=== PATIENT | female | born 1955 | race Caucasian/White ===

== ENCOUNTER 2017-04-16 15:22 | Inpatient (IN) | payer OTHER ==
[~2017-04-16] VITALS: Ht 160 cm; Wt 41.0 kg
[2017-04-16 16:47] VITALS: BP 149/77; PULSE 92; RESP 18; O2SAT 95
[2017-04-16] MEDS ORDERED: MULT400C3 PO (17:00)
[2017-04-16] MEDS ORDERED: NAPR375T2 PO (17:00)
[2017-04-16] MEDS ORDERED: Polyethylene Glycol (PEG) 17 Gm Powder PO PRN (17:35)
[2017-04-16] MEDS ORDERED: Alum-Mag Hydrox-Simeth 30 mL Suspension PO PRN (17:35)
[2017-04-16] MEDS ORDERED: Ondansetron 2 mg/mL 2 mL Inj IVPUSH PRN (17:35)
[2017-04-16] MEDS: 0.9% Sodium Chloride 1,000 ML IV SCH (18:24)
[2017-04-16] MEDS: HYDROmorphone 0.5 mg/0.5 mL iSecure Syringe IVPUSH PRN ×2 (18:25→22:48)
[2017-04-16 19:40] VITALS: BP 160/81; PULSE 90; RESP 16; O2SAT 97
--- NOTE | 2017-04-16 21:25 | PCM.HPMED ---
Subjective Date of Service Apr 16, 2017 Primary Provider: Admitting Physician: Mag Arias MD Primary Care Physician: Celeste Attending Physician: Mag Arias MD Chief Complaint: Cough, SOB, and rib pain History of Present Illness: 62-year-old female with history of [id number] smoking and coarctation s/p aortic artery replacement presented to [facility] due to 7 days of chest and rib pain and shortness of breath. The patient denied fever, chills, nausea, vomiting, substernal chest pain, radiating chest pain, diaphoresis, dizziness, weight loss, or abdominal pain. The patient underwent evaluation at [facility] chest x-rays demonstrating large right pleural effusion, and a CT angiography of the chest which demonstrated what appears to be a homogenous pleural effusion. At [facility] a thoracentesis was achieved but only 30 mL were obtained, reportedly demonstrating an empyema or loculated pleural effusion. Etiology for the effusion has not been diagnosed and current report of the CT is not in [facility]. Plans were made as late as 04/15/[address] a chest tube for drainage. However this was never accomplished and there is no recurrent port as to why a chest tube was not attempted. The patient was instead transferred to [facility] where the above history was reviewed and review of systems was obtained. The reason for the transfer was initially reported for VATS. Dr. Arias of surgery is aware of the patient and asked that pulmonology also be involved. The patient today is doing quite well with only right-sided rib and chest pain that is amenable to Dilaudid 0.5 mg. Blood work from today prior to the patient leaving [facility] is as follows: Sodium 131, potassium 3.4, chloride 96, bicarbonate 25, calcium 8.3, BUN 8, creatinine 0.7, GFR greater than 60, glucose 76. WBC 12.2, H/H 11.1/32.6, platelets 298; differential 83% polys Iron 12, TIBC 150, percent saturation 8 Thoracentesis details obtained by phone call to [facility]: protein 3853.5, LDH 1618, color: clear-yellow, WBC 2380, RBC 92223, seg neut 56, clear cells 44 Review of Systems: Complete review of systems performed; pertinent positives and negatives per history of present illness, all other systems reviewed and are negative Allergies Coded Allergies: Sulfa (Sulfonamide Antibiotics) (Verified Allergy, Severe, rash, 04/16/17) latex (Verified Allergy, Intermediate, rash, 04/16/17) Home Medications Ladies Multivitamin 50+ Naproxen PRN PMH Reported coarctation of the aorta Nicotine dependence Unremarkable nuclear medicine stress test 1 year ago Surgical History Aortic-bifemoral artery replacement at [facility] 2014 Family History Mother - CHF, COPD Father - Cardiac disease, COPD, EtOH abuse Social History Hx Alcohol Use: Yes (rare) Hx Substance Use: No Smoking Status: Current Every Day Smoker (6 cigarettes/day) Living Arrangement: with Family Exam Vital Signs Vital Sign - Last Date Time Temp Pulse Resp B/P Pulse Ox O2 Delivery O2 Flow Rate FiO2 04/16/17 16:47 36.5 92 18 149/77 95 Room Air Exam General: Pleasant appearing female in no acute distress; somewhat cachectic appearing HEENT: PERRLA, EOMI, nonicteric, membranes moist Lymph: No lymphadenopathy Cardio: Regular rate and rhythm no murmurs rubs or gallops Respiratory: CTA bilaterally, no wheezes, no crackles; decreased breath sounds especially in the right lower lobe; increase consolidation on on percussion in right lower lobe Abdomen: Soft, positive bowel sounds, nontender, nondistended Extremities: No edema, sensation intact, pulses intact Psych: Appropriate mood and affect Neuro: CN II through XII grossly intact, sensation intact throughout Skin: No rash Lab and Diagnostics X-Rays, CTs and MRIs CXR 04/11/17 1. Opacification involving much of the right lower lobe. This may be atelectasis plus or minus pleural effusion. An underlying infection is not excluded. Atelectasis may be secondary to mucus plugging from bronchitis or central obstructing mass lesion. Further evaluation with contrast-enhanced chest CT is recommended. 2. Questionable prominence of the superior mediastinal structures suggestive of adenopathy, also further evaluate by cross-sectional imaging. 3. Mild hyperinflation consistent with mild emphysema. 4. Discussed with Parisa Beltre in the urgent care clinic. Dictated by: Debo Wilson MD on 04/11/2017 at 16:05 9 Assessment & Plan 62-year-old female with limited past medical history presents to emergency department at [facility] due to chest pain and was found to have recurrent right- sided pleural effusion concerning for empyema with unknown etiology. Recurrent pleural effusion with leukocytosis; present on admission; ongoing -Patient transferred from [facility] due to recurrent pleural effusion on the right; desired VATS Previously drained 400ml, re-accumulated and loculated on thoracentesis -Patient is a chronic 46-yusp-dguz smoker, so malignancy is a concern; concern for parapneumonic effusion due to ongoing leukocytosis -Unknown etiology at this point although effusion had a glucose of 2 which may be concerning for bacterial empyema -Pleural fluid: GS and culture was negative; AFB negative -Called [facility] and no cytology report available; discharge summary stated that there was a cytology ordered but unable to find results -Bcx negative at [facility] -Previously on Zosyn; will continue -MRSA screen -Discussed the case with pulmonology who will assess her tomorrow -Discussed with Dr. Arias this evening who requests the hospitalist and pulmonology teams assess for whether VATS is necessary -Repeat bcx ordered -Repeat CT -Recommend repeat diagnostic thoracentesis with cytology for malignant cells ordered that was not ordered at [facility] Persistent mild Hyponatremia; present on admission; ongoing -Previously treated with fluid restriction, thinking that it was 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 to SIADH -1 L fluid restriction daily -Serum and urine osmolalities ordered -Urine sodium ordered Iron deficiency anemia; present on admission; ongoing -As reported in HPI, patient severely iron deficient with saturation of 8% -Daily iron replacement -Consider screening for celiacs Nicotine dependence; present on admission; ongoing -Nicotine patch -Smoking cessation discussed Disposition: Patient is being admitted to inpatient status with expected length of stay greater than two midnights due to to severity of presentation, duration of treatment, and risks of adverse events disposition DNR/DNI Pain Evaluation: Adequate Pain Control VTE Prophylaxis Indicated: Contraindicated (concern for malignant effusion) Resuscitation Status: DNR/DNI:Do Not Resuscitate/Intubate Time spent 40 minutes Attending Statement The patient was seen and examined together with on 04/16/2017and I agree with the history, exam findings, and plan as outlined in the note above. I did participate in all aspects of the services provided today, including documentation and the plan of care. This patient presents with a loculated pleural effusion. She will be seen by pulmonary. Patient is for chest tube decompression versus VATS. Kali Bruce DO Apr 16, 2017 17:40 Avery Sanchez MD Apr 18, 2017 07:41
--- NOTE | 2017-04-16 22:07 | DRSVH ---
PROCEDURE: CT CHEST WITHOUT CONTRAST ([id number]) INDICATIONS: pleural effusion TECHNIQUE: Noncontrast 5 mm thick sections acquired from the pulmonary apices to the posterior costophrenic angl es. 7 mm thick coronal and sagittal MIP reformats were then acquired. For radiation dose reduction, the following was used: automated exposure control, adjustment of mA and/or kV according to patient size. COMPARISON: None. FINDINGS: Image quality: Excellent. Lungs and pleura: There is moderate centrilobular emphysema with an apical predominance. Bullous emph ysema is also present at the apices. A 4 x 9 mm spiculated mass or scar is present at the left apex ( series 3, image 12). There is a moderate-sized low density pleural effusion, slightly decreased when compared with the study dated 04/12/17. This has a loculated appearance. As before, there is consolida tion or compressive atelectasis at the right lung base. New atelectasis or consolidation is present i n the dependent left lung when compared with the prior study. No left pleural effusion. No pneumothor ax. A calcified granuloma is redemonstrated in the right lower lobe. Mediastinum: Heart size is normal. No pericardial effusion. No mediastinal adenopathy by size crit eria. Thoracic aorta and central pulmonary arteries are normal in size. Scattered atheromatous calc ifications are present within the aortic arch. Esophagus is normal in caliber. No hiatal hernia. Bones and chest wall: No suspicious bony lesions. No vertebral body compression fractures. No axil michael or supraclavicular adenopathy by size criteria. Thyroid gland is unremarkable. Abdomen: Visualized upper abdominal solid organs and bowel loops appear normal in the absence of con trast. IMPRESSION: 1. Pleural effusion which is slightly decreased when compared with the study dated 04/12/17. As before , there have a loculated appearance. 2. Unchanged dependent right basilar consolidation or atelectasis. 3. New atelectasis or consolidation at the dependent left lung base. 4. Pulmonary scar versus subcentimeter spiculated mass at the left apex. [address] recommen ded to ensure stability of this finding. Dictated by: Peggy Hansen M.D. on 04/16/2017 at 22:01 Approved by: Peggy Hansen M.D. on 04/16/2017 at 22:06
[2017-04-16] MEDS: Piperacillin-Tazo 3.375 Gm Inj 3.375 GM in Dextrose 5% Minibag Plus 50 ML IV SCH (22:47)
[2017-04-17 00:44] VITALS: BP 161/87; PULSE 86; RESP 17; O2SAT 96
[2017-04-17] MEDS: 0.9% Sodium Chloride 1,000 ML IV SCH (03:35)
[2017-04-17] MEDS: HYDROmorphone 0.5 mg/0.5 mL iSecure Syringe IVPUSH PRN ×4 (05:00→18:41)
--- NOTE | 2017-04-17 05:07 | NUR ---
Pain Patient complains of 7-9/10 right back pain, by her thoracentesis site. 0.5mg Dilaudid IVP seems to be effective, but more pain medication is needed after the 4 hour time frame. After further reassessment patient was able to get her pain down to 5/10. Will continue to monitor and continue Q1 hour checks.
[2017-04-17 05:25] VITALS: BP 145/77; PULSE 84; RESP 17; O2SAT 96
[2017-04-17] MEDS: Piperacillin-Tazo 3.375 Gm Inj 3.375 GM in Dextrose 5% Minibag Plus 50 ML IV SCH ×3 (06:29→22:49)
[2017-04-17 08:13] VITALS: BP 149/78; PULSE 75; RESP 16; O2SAT 99
[2017-04-17] MEDS: Polyethylene Glycol (PEG) 17 Gm Powder PO SCH (08:30)
[2017-04-17 12:02] VITALS: BP 147/81; PULSE 78; RESP 16; O2SAT 97
--- NOTE | 2017-04-17 12:38 | NUR ---
Pain/PO intake/Thoracentesis Talked with Mulugeta from Ultrasound and patient's thoracentesis was canceled. Pulmonary consult was ordered. Patient continues to be at a 7/10 on the pain scale for pain in her back. Paged hospitalist about PO pain medication and a diet order. Talked with patient about canceled thoracentesis and plan. White board is updated.
[2017-04-17 13:10] LABS: INR 1.05 ratio
[2017-04-17 13:33] LABS: BASOPHILS % (AUTO) 0.3 % (0-3); EOSINOPHILS % (AUTO) 0.7 % (0-5); MONOCYTES % (AUTO) 13.8 % (4-12); Mean Corpuscular Hemoglobin 30.6 pg (27.0-35.0); Mean Corpuscular Volume 87.3 fL (81-100); NEUTROPHILS % (AUTO) 77.3 % (40-74); Platelet Count 333 bil/L (150-400)
[2017-04-17 13:34] LABS: ERYTHROCYTE SEDIMENTATION RATE 63 mm/hr (0-40)
--- NOTE | 2017-04-17 13:50 | PCM.PNMED ---
Subjective Date of Service Apr 17, 2017 Subjective Continues to have mild dyspnea. Afebrile. Exam Vital Signs Vital Sign - Last Date Time Temp Pulse Resp B/P Pulse Ox O2 Delivery O2 Flow Rate FiO2 04/17/17 12:02 36.7 78 16 147/81 97 Room Air 3.00 Intake and Output 04/16/17 04/16/17 04/17/17 Cumulative From/Thru 15:00 23:00 07:00 04/16/17 16:48 - 04/17/17 05:58 Intake Total 0 ml 0 ml 0 ml Output Total 0 ml 1100 ml 1100 ml Balance 0 ml -1100 ml -1100 ml Intake Oral 0 ml 0 ml 0 ml Output Urine Total 0 ml 1100 ml 1100 ml Exam General: Pleasant appearing female in no acute distress; somewhat cachectic appearing HEENT: PERRLA, EOMI, nonicteric, membranes moist Lymph: No lymphadenopathy Cardio: Regular rate and rhythm no murmurs rubs or gallops Respiratory: CTA bilaterally, no wheezes, no crackles; decreased breath sounds especially in the right lower lobe; increase consolidation on on percussion in right lower lobe Abdomen: Soft, positive bowel sounds, nontender, nondistended Extremities: No edema, sensation intact, pulses intact Psych: Appropriate mood and affect Neuro: CN II through XII grossly intact, sensation intact throughout Skin: No rash IVs and Medications Medications Reviewed: Medications were reviewed in detail Lab and Diagnostics Result Diagram: 04/17/17 1248 04/17/17 1248 X-Rays, CTs and MRIs CXR 04/11/17 1. Opacification involving much of the right lower lobe. This may be atelectasis plus or minus pleural effusion. An underlying infection is not excluded. Atelectasis may be secondary to mucus plugging from bronchitis or central obstructing mass lesion. Further evaluation with contrast-enhanced chest CT is recommended. 2. Questionable prominence of the superior mediastinal structures suggestive of adenopathy, also further evaluate by cross-sectional imaging. 3. Mild hyperinflation consistent with mild emphysema. 4. Discussed with Parisa Beltre in the urgent care clinic. Dictated by: Debo Wilson MD on 04/11/2017 at 16:05 PROCEDURE: CT CHEST WITHOUT CONTRAST ([id number]) INDICATIONS: pleural effusion IMPRESSION: 1. Pleural effusion which is slightly decreased when compared with the study dated 04/12/17. As before, there have a loculated appearance. 2. Unchanged dependent right basilar consolidation or atelectasis. 3. New atelectasis or consolidation at the dependent left lung base. 4. Pulmonary scar versus subcentimeter spiculated mass at the left apex. [address] recommended to ensure stability of this finding. Dictated by: Peggy Hansen M.D. on 04/16/2017 at 22:01 Assessment & Plan 62-year-old female with limited past medical history presents to emergency department at [facility] due to chest pain and was found to have recurrent right- sided pleural effusion concerning for empyema with unknown etiology. #Loculated pleural effusion with leukocytosis; present on admission; ongoing -Patient transferred from [facility] due to recurrent pleural effusion on the right for possible VATS Previously drained 400ml, re-accumulated and loculated on thoracentesis -Patient is a chronic 50-tuwg-oiaf smoker, so malignancy is a concern; concern for parapneumonic effusion due to ongoing leukocytosis. No fever. Unclear if prior thoracentesis sample was sent for culture. -Unknown etiology at this point although effusion had a glucose of 2 which may be concerning for bacterial empyema -Pleural fluid: GS and culture was negative; AFB negative -Called [facility] and no cytology report available; discharge summary stated that there was a cytology ordered but unable to find results -Bcx negative at [facility] -Previously on Zosyn; will continue -MRSA screen -Discussed the case with pulmonology , he recommends chest tube based on CT -consulted surgery Dr. Walker -Repeat bcx pending -Repeat CT loculated effusion as above - repeat diagnostic thoracentesis with cytology for malignant cells ordered but radiologist state it was tried at [facility] and fluid not amenable to thoracentesis #Persistent mild Hyponatremia; present on admission; ongoing -Previously treated with fluid restriction, thinking that it was 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 to SIADH -1 L fluid restriction daily #Iron deficiency anemia; present on admission; ongoing -As reported in HPI, patient severely iron deficient with saturation of 8% -Daily iron replacement -Consider screening for celiacs #Nicotine dependence; present on admission; ongoing -Nicotine patch -Smoking cessation discussed Disposition: Patient is being admitted to inpatient status with expected length of stay greater than two midnights due to to severity of presentation, duration of treatment, and risks of adverse events disposition DNR/DNI Disposition: Pending clinical course VTE Mechanical Devices: Intermittant Pneumatic CD Resuscitation Status: DNR/DNI:Do Not Resuscitate/Intubate Abdulkadir Rausch MD Apr 17, 2017 13:50 Abdulkadir Rausch MD Apr 17, 2017 13:50
[2017-04-17] MEDS: oxyCODONE-Acetamin 5-325 mg Tablet PO PRN ×2 (14:24→20:41)
[2017-04-17] MEDS: Albuterol-Ipratropium 3 mL Inhalation Solution NEB SCH ×2 (16:00→20:40)
--- NOTE | 2017-04-17 16:03 | CONS ---
[address] [address] CONSULTATION REPORT PATIENT: LESLIE BELL : 1955 MR#: [id number] ADMIT: 04/16/2017 JOB ID: [id number] DATE OF SERVICE: 04/17/2017 REASON FOR CONSULTATION: Abnormal chest imaging with loculated right-sided effusion. HISTORY OF ILLNESS: The patient is a very pleasant, 62-year-old, white female, long-time smoker, who was well until approximately 10 days ago when she developed cough, dyspnea and sudden-onset severe incapacitating right-sided pleuritic chest pain. After four days of increasing pain, she presented to her local [facility] where chest x-ray demonstrated a small to moderate right-sided pleural effusion. Noncontrast chest CT was obtained demonstrating moderate-sized loculated effusion with compressive atelectasis occupying much of the right chest base. Her case was discussed with some of the staff here at [facility], possibly one of the surgeons. She was transferred with the intention that she would undergo video-assisted thoracoscopic surgery, to which she had already agreed. After she arrived yesterday evening, the surgeon thought that perhaps a pulmonary consult would be useful, although I was not contacted by anybody until this morning and was not exactly clear what the clinical question was that I was being asked to address. The patient denies any recent fevers, chills, involuntary weight loss. Her cough has subsided and she has had no increase or change in sputum production. She is a lifetime smoker and recently "cut back" but continues to still smoke up to a half a pack a day. She has a prior history of one episode of pneumonia, not requiring hospitalization, as a young adult. Her chest CT scan showed at least moderate bullous emphysema, but she does not carry a diagnosis of COPD and has never previously seen a proof load mechanic. PAST MEDICAL HISTORY: Status post some unknown aortic reconstruction surgery which the patient reports was aortobifemoral reconstruction but per the chart was reportedly a coarctation repair within the last year however I must question that timeline as it would be unusual for a significant coarctation to escape diagnosis until the 7th decade. There is no report of a biscuspid aortic valve. We do not have any of these records of course. FAMILY HISTORY: Mother had CHF and COPD. Father had heart disease. COPD and alcohol abuse. SOCIAL HISTORY: She is . She continues to smoke up to half a pack a day. Drinks alcohol on rare occasions. Denies street drugs. OUTPATIENT MEDICATIONS: Include Naproxen p.r.n. and multivitamins. Current inpatient medications include Maalox Plus, iron sulfate, Dilaudid IV p.r.n., nicotine patch, Zofran p.r.n., oxycodone tablet p.r.n. and Senna. DRUG ALLERGIES: Include SULFA ANTIBIOTICS. PHYSICAL EXAM: Reveals a thin woman who appears slightly older than her stated age. She appears comfortable and speaks in full sentences. She is and has been afebrile since admission with a current temperature of 36.7. Her blood pressure is 147/81, heart rate is 80 and regular. Respirations are 16. O2 saturation at rest on 3 L by cannula is 97, 98%. HEENT exam: She has bitemporal wasting. The face is symmetric. Gaze is conjugate. Conjunctivae not injected. Sclerae anicteric. Pupils are equal at 5 mm. The oropharynx shows dry mucosa without exudate or ulceration. The trachea is midline. There is no mass, adenopathy or crepitus in the neck or supraclavicular region. I cannot appreciate any thyroid tissue. Lungs show dullness to percussion of the right posterior base with decreased breath sounds in this area. The left lung itself also showed slightly decreased breath sounds with scattered crackles that only partially clear with cough. Cardiac exam shows a distant regular rhythm with normal S1, S2 and no murmur, gallop or rub. Her extremities show changes of osteoarthritis. There is some tightening of the skin over the dorsum of both hands. No obvious sclerodactyly, no pathologic nail changes. Pulses 1+ of both radial arteries. Her abdomen is soft and nontender. She has a well-healed midline scar consistent with her history of previous aortic reconstruction. There is no tenderness or organomegaly. She has no bruits in the abdomen or flank and bowel tones are present. DATABASE: Per the electronic medical record. A noncontrast chest CT scan from April 16, 2017, is personally reviewed. This is a noncontrast study, but there is a suggestion of some right hilar lymphadenopathy. The most striking finding is the moderate sized loculated pleural effusion in the right posterior base with some tracking to the midline. There is a very small spiculated density in the left apex which is not clearly visible on other studies such as plain film. She has moderately severe bullous emphysematous changes throughout both lungs. Her CBC shows a hemoglobin of 11, hematocrit 32, WBC 11.6, and she has 333,000 platelets. Chemistries show sodium 131, potassium 3.9, chloride 96, total CO2 22, BUN 7, creatinine 0.43. Random glucose 84. Total calcium is 8.1. Procalcitonin normal at 0.08. Albumin low, 2.3. Total protein low, 5.4. IMPRESSION: 1. Loculated right-sided pleural effusion. Some of the chemistries we have on the fluid from the diagnostic thoracentesis done at the outside hospital would be consistent with an empyema or certainly an exudate with low pH and elevated white count. As I understand, cultures are no growth to date but this was not obtained at this facility and I am not sure we have up-to-date information regarding the microbiology. There was no other obvious process on her chest CT scan that particularly raises the possibility of an underlying malignancy, but given her age and extensive smoking history, one always is concerned about large effusions in this population representing a new malignancy. In any case, I think both diagnostically and therapeutically, the operating room is her best option. If the fluid is thin and drains easily at the time of VATS, one or two chest tubes can be placed and it should be a fairly brief procedure. If, on the other hand, this has gelled somewhat and requires quite a bit of debridement, she will already be in the operating room and on single-lung ventilation to allow adequate exposure and evacuation of her pleural space as needed. 2. Suspect moderate underlying emphysema based on imaging. However, PFTs are not available. 3. History of aortic reconstruction. 4. Cachexia with hypoalbuminemia, hypoproteinemia. RECOMMEND: Proceed with VATS as planned. Parietal pleural biopsies and fluid to be submitted for cyto path, culture including Mycobacterium and adenosine deaminase along with full chemistries. To best estimate her perioperative risk for pulmonary complications she should have at least bedside spirometry and and ABG on room air Nebulized albuterol/ipratropium QID WA post-op. Thank for requesting pulmonary critical care consultation. We will continue to follow with you through the postoperative period. EDY
[2017-04-17 16:38] VITALS: BP 146/81; PULSE 77; RESP 18; O2SAT 95
--- NOTE | 2017-04-17 19:34 | CONS ---
[address] [address] CONSULTATION REPORT PATIENT: LESLIE BELL : 1955 MR#: [id number] ADMIT: 04/16/2017 JOB ID: [id number] DATE OF SERVICE: 04/17/2017 CHIEF COMPLAINT: Shortness of breath. HISTORY OF PRESENT ILLNESS: Patient is a 62-year-old woman who was transferred here from [facility]. She presented with approximately a cdea-ypa-z-half history of increasing shortness of breath. She had a cough and coughed to the point of feeling like she pulled a muscle or broke a rib on the right with right-sided pleuritic pain. At [facility], plans were made to potentially place a chest tube, but that was not done, and ultimately it was favored to transfer her somewhere were VATS could be accomplished as the anesthesiologist at [facility] did not feel that VATS was a good option in that location. Today, the patient complains of mild shortness of breath, mainly with activity. Prior to her illness, she was able to walk up stairs without shortness of breath and had no limitations of basic activities because of any chest pain or shortness of breath. She does have a 40 pack-year smoking history. She also has a history of aortic coarctation and has previously undergone an aortobifemoral bypass graft at [place] in 2014. She has no ongoing cardiac disease. By report, she had a nuclear medicine stress test one year ago which was unremarkable. I do not have that study. A thoracentesis was performed at [facility]. This showed an exudative effusion with an LDH of 1618, protein level of 3853, white blood cells of 2380, red blood cells 10,000. Culture from that fluid is not available. PAST MEDICAL HISTORY: Nicotine dependence, aortic coarctation, hypertension. PAST SURGICAL HISTORY: Aortobifemoral bypass graft in 2014. HOME MEDICATIONS: Include multivitamin and naproxen. ALLERGIES: To SULFA and LATEX. SOCIAL HISTORY: She smokes six cigarettes per day. She denies illicit drug use. Rarely drinks alcohol. FAMILY HISTORY: Mother had CHF and COPD. Father had cardiac disease, COPD, alcohol abuse. REVIEW OF SYSTEMS: Ten point review of systems is negative for hemoptysis, negative for wheezing or unplanned weight loss. Negative for tuberculosis exposure. PHYSICAL EXAMINATION: VITAL SIGNS: Body mass index 16.0. Temperature 36.8, pulse 77, blood pressure 146/81, saturation 95% on room air. GENERAL: She is sitting up in bed, in no acute distress. HEENT: Sclerae are anicteric. Mucous membranes are moist. NECK: No jugular venous distention. Trachea is midline. CHEST: She has diminished breath sounds on the right side, most prominent at the base. There are no wheezes. HEART: Regular rate and rhythm. No murmurs. ABDOMEN: Soft, nontender, nondistended. There is a long midline scar without evidence of hernia. EXTREMITIES: No edema. VASCULAR: Right radial pulse is 1/2, left radial pulse is 2/2. NEURO: No deficits. PSYCHIATRIC: Affect is appropriate. LABORATORIES: White count is 11.6, hematocrit 31.7, platelets 333. ESR 63. Creatinine 0.43, glucose 84, albumin 2.3. Procalcitonin 0.08. INR 1.05. IMAGING: CT of the chest with contrast shows a moderate sized low-density pleural effusion, loculated in appearance, with some compressive atelectasis at the right lung base. There is a 4 x 9 mm spiculated mass or scar on the left apex. There is moderate centrilobular emphysema with apical predominance. ASSESSMENT AND PLAN: A 62-year-old woman with a right loculated pleural effusion, which is either empyema or exudative effusion based on fluid studies from prior thoracentesis. I think that the best way to treat this pleural space problem is with VATS. I do not think a chest tube alone is likely to take care of the problem. Also, performing a VATS would allow the possibility of pleural biopsies if there is any tissue that is amenable to pleural biopsy given that the etiology is unclear. With her smoking history and small left apical mass, possibility of malignancy is not insignificant. Technical aspects of VATS with decortication was discussed with the patient. Risks were discussed, including, but not limited to bleeding, prolonged air leak, persistent pleural effusion, conversion to open thoracotomy. I will discuss things with our anesthesiologist and find out if it is possible if this operation could be done this weekend. If so, we will tentatively schedule that for tomorrow. If not, need to talk to one of my partners about getting it done on Wednesday. All her questions were answered.
[2017-04-17 21:17] VITALS: BP 129/80; PULSE 89; RESP 17; O2SAT 97
[2017-04-18] MEDS: HYDROmorphone 0.5 mg/0.5 mL iSecure Syringe IVPUSH PRN ×2 (03:11→07:41)
--- NOTE | 2017-04-18 04:33 | NUR ---
Activity Patient A&OX3 and pleasant this evening. Complains of right sided rib/back pain around her paracentesis site. PO percocet 1 tab and IV dilaudid .5mg have been used to manage pain this evening. Patient seems to find pain relief after administration of pain meds, but once she wakes up from sleeping her pain is quite severe. Has been NPO since 0030, and BG @ 0300 was 132. Denies CP or SOB. IV infusing intermittent abx. Will continue to monitor and continue Q1 hour checks.
[2017-04-18 04:45] VITALS: BP 136/73; PULSE 98; RESP 18; O2SAT 95
[2017-04-18] MEDS: Albuterol-Ipratropium 3 mL Inhalation Solution NEB SCH (06:00)
[2017-04-18] MEDS: Piperacillin-Tazo 3.375 Gm Inj 3.375 GM in Dextrose 5% Minibag Plus 50 ML IV SCH (06:32)
[2017-04-18] MEDS: Polyethylene Glycol (PEG) 17 Gm Powder PO SCH (07:45)
[2017-04-18] MEDS ORDERED: Lactated Ringer's 1,000 ML IV ONE ×2 (07:55)
[2017-04-18 08:42] LABS: BASOPHILS % (AUTO) 0.2 % (0-3); EOSINOPHILS % (AUTO) 0.8 % (0-5); MONOCYTES % (AUTO) 14.9 % (4-12); Mean Corpuscular Hemoglobin 30.3 pg (27.0-35.0); Mean Corpuscular Volume 87.3 fL (81-100); NEUTROPHILS % (AUTO) 75.2 % (40-74); Platelet Count 351 bil/L (150-400)
--- NOTE | 2017-04-18 08:46 | PCM.HPANE ---
Patient Data Date of Service: Apr 18, 2017 Surgeon Admitting Provider:Mag Arias MD Attending Provider:Abdulkadir Rausch MD Primary Care Physician:Celeste Other Provider: Reason for Visit Eloculated Empyema Ht/WT & BMI Height (Feet): 5 Height (Inches): 3.00 Weight (Kilograms): 41.000 Body Mass Index 16.02 Allergies Coded Allergies: Sulfa (Sulfonamide Antibiotics) (Verified Allergy, Severe, rash, 04/16/17) latex (Verified Allergy, Intermediate, rash, 04/16/17) Past Anesthesia History Anesthesia History: Denies:: Anesthesia Reactions, Fam Anesthesia Reaction, Fam Malignant Hypertherm, Malignant Hyperthermia Diabetes History Hx Diabetes?: No Current Bedside Blood Glucose: 132 MRSA MRSA: No Medications Hypertension Medication: No Home Meds Incl Beta Escobar: No Reported Medications Multivit, Calc, Min/Folic Acid (Multi For Her 50 Plus Softgel)400 Mcg [id number] Mcg PO 04/16/17 Naproxen 375 Mg [id number] Mg PO BID PRN For Pain Ref 0 04/16/17 History History of ENT Problems?: Yes HEENT History: Positive for:: Sinus Problem (post nasel drip) Denies:: Cataracts Dysphagia Glaucoma Denture Type: None Teeth Condition: Broken Teeth Tooth Decay Missing Teeth Other HEENT Pertinent History: very loose top incisor Hx of Heart Problems?: Yes Cardiovascular History: Positive for:: Cardiac Surgery (aortobifem bypass) Hypertension (self d/c hypertensive meds) Peripheral Vascular Denies:: Chest Pain Congestive Heart Failure Coronary Artery Disease Irregular Heartbeat Other Cardiac History: ? coarctation of the aorta, denies presyncope/syncope, denies peripheral vascular disease "problems with blood flow" to upper extremities Hx of Respiratory Problem?: Yes Respiratory History: Positive for:: COPD Cough Dyspnea Emphysema Pneumonia Denies:: Asthma Chest Surgery Hemoptysis Tuberculosis Other Resp Pertinent History: 40+ pk year smoking history - continues to smoke ; apical lung mass Hx Neurologic Problems?: No Neurological History: Denies:: CVA Dementia Dizziness Headaches Parkinson's Disease Seizures Other Neurological Pertinent: prior cervical fractures of C6 & C7 per patient , no operative Rx - wore a neck brace for a period of time; denies UE radiculopathy/neuropathy Hx of GI Problems?: Yes Gastrointestinal History: Denies:: Cirrhosis Gastroesphageal Reflux Other GI Pertinent History: pt denies h/o ETOH abuse despite being in pt record Hx of Problems?: No Genitourinary History: Denies:: Kidney Stones Urinary Tract Infection Female Hx: Denies:: Currently Endometriosis Pelvic Inflammatory Problems with Breasts? Hx Musculoskeletal Problems?: Yes Other History/Comment C6 & C7 fractures 1990s - no surgical intervention Hx of Psycho/Social Problems?: No Psycho Social History: Denies:: Anxiety Bipolar Disorder Hx Depression Hx Surgeries?: Yes (aortobifem bypass) Other History: Positive for:: Cancer Hospitalization (Arotic artery replaced) Denies:: Thyroid Disease History Blood Transfusions: Positive for:: Accept Blood Products? Denies:: Blood Transfuse Reaction Blood Transfusions Hx Diabetes: NoBedside Blood Glucose: 132 Hx Alcohol Use: Yes (rare)Hx Substance Use: No Smoking Status: Current Every Day Smoker (6 cigarettes/day) Have You Smoked inLast 12 mo: YesApprox How Many Cigarettes/day: 6 a day Stop/Bang Treated for Sleep Apnea?: No Do You Have a CPAP Machine?: No S-Snoring: Do You Snore Loudly: No T-Tired: feel tired, fatigued: No O-Obsered: Observed not breath: No P-Blood Pressure: treated: No B- Body Mass Index > 35 kg/m2: No A- Age over 50: Yes N- Neck Large Circumference: No G- Gender Male: No BRODERICK Total Score: 0 BRODERICK Risk Assessment: Low Risk, <3 Yes Risk Assessment Category Category 1A: Patient has history of documented sleep apnea, and HAS NOT received any narcotic, sedative or anesthesia administration during this stay. Category 1B: Patient has history of documented sleep apnea, and HAS received any narcotic , sedative or anesthesia administration during this stay Category 2: Patient has SUSPECTED Obstructive Sleep Apnea, and HAS received any narcotic , sedative or anesthesia administration during this stay. Category 3: Patient has SUSPECTED Obstructive Sleep Apnea and HAS NOT received narcotic, sedative or anesthesia administration during this stay. Category 4: Outpatient in Procedural Areas with known sleep apnea or who screen positive for High Risk via the STOP/BANG questionnaire. Exam Exam Vital Signs Vital Signs Date Time Temp Pulse Resp B/P Pulse Ox O2 Delivery O2 Flow Rate FiO2 04/18/17 04:45 37.2 98 18 136/73 95 Room Air General Appearance: Alert, Oriented X3, Cooperative, No Acute Distress HEENT/AIRWAY: MP 3, Neck Movement (FROM), Mouth Opening (>3), Other (TMD>3) Lungs: Diminished (particularly diminished right side) Heart: Exam Unremarkable, Regular Rate/Rhythm, Normal S1, Normal S2, No Murmurs /Rubs/Gallops Meds/Labs/Diagnostics Admission Meds Current Medications Lactated Ringer's (Lr) 1,000 ml @ ud STK-MED ONCE IV Last administered on t 07:55; Start 04/18/17 at 07:55; Stop 04/18/17 at 07:57; Status DC Bedside Blood Glucose: 132 Labs Test 04/16/17 21:50 04/17/17 05:00 04/17/17 07:25 04/17/17 12:48 Hold Purple Top Tube Received (Received) Hold Blue Top Tube Received (Received) Hold Red Top Tube Received (Received) Hold [place] Top Tube Received (Received) Hold Jean Top Tube Received (Received) Urine Random Sodium 133mEq/L Osmolality 269 (275-300) Erythrocyte Sedimentation Rate 63mm/hr (0-40) Prothrombin Time 11.2sec (8.1-12.5) Prothromb Time International Ratio 1.05ratio Test 04/18/17 05:20 White Blood Count 12.6th/mm3 (3.8-10.1) Red Blood Count 3.47mil/mm3 (3.90-5.20) Hemoglobin 10.5g/dL (12.0-15.6) Hematocrit 30.3% (35.0-46.0) Mean Corpuscular Volume 87.3fL (81-100) Mean Corpuscular Hemoglobin 30.3pg (27.0-35.0) Mean Corpuscular Hemoglobin Concent 34.7% (32.0-37.0) Red Cell Distribution Width 12.3% (12.3-15.4) Platelet Count 351bil/L (150-400) Neutrophils (%) (Auto) 75.2% (40-74) Lymphocytes (%) (Auto) 8.4% (14-46) Monocytes (%) (Auto) 14.9% (4-12) Eosinophils (%) (Auto) 0.8% (0-5) Basophils (%) (Auto) 0.2% (0-3) Sodium Level 132mEq/L (134-144) Potassium Level 3.6mEq/L (3.5-5.2) Chloride Level 94mEq/L (97-108) Carbon Dioxide Level 22mmol/L (18-29) Blood Urea Nitrogen 9mg/dL (8-27) Creatinine 0.60mg/dL (0.57-1.00) Estimat Glomerular Filtration Rate 145mL/min (>59) Glucose Level 88mg/dL (60-99) Calcium Level 8.0mg/dL (8.5-10.1) Total Bilirubin 0.3mg/dL (0.0-1.2) Aspartate Amino Transf (AST/SGOT) 13U/L (0-50) Alanine Aminotransferase (ALT/SGPT) 6U/L (0-32) Alkaline Phosphatase 95U/L (25-165) Total Protein 5.9g/dL (6.4-8.4) Albumin 2.5g/dL (3.4-5.0) Procalcitonin 0.09ng/mL (0.00-0.08) Plan Impression Patient chart reviewed, patient interviewed and anesthestic plan with risks, benefits, and alternatives discussed, and informed consent obtained. NPO per Anesth. Guidelines: Yes ASA Physical Status: ASA4 Plus Emergency (R-sided empyema/loculated pleural effusion) Anesthetic Support Modalities: Fiberoptic Scope, Arterial Line Anesthetic Plan: GA Bene/Risks/Altern/Consents: Yes HP Complete Prior to Induction: Yes Other Plan on double lumen ETT with placement confirmed by F.O. scope. Post-induction A-line. Risk for post-op intubation and mechanical ventilation addressed. Pt after inquiring of daughter decided to suspend her DNR/DNI for duration of surgery. Alban Marino MD Apr 18, 2017 08:46
--- NOTE | 2017-04-18 08:46 | NUR ---
Social Work: Screening D: EMR reviewed. Pt is a 62 y/o female admitted for eloculated empyema per H&P. Pt's insurance is [employer]. Pt does not have a PCP. Pt refused DPOA/advanced directive ppw upon admit. Pt lives at home with family in [place]. Pt's friend Lakshmi Mcmahon is listed as NOK . Per EMR, pt does not screen in for full assessment. Per RN notes, pt alert and oriented x3. Pt has some complaints of pain around paracentesis. Pt is currently receiving IVABX at hospital. SW will discuss pt in multidisciplinary rounds to determine if pt will discharge with IVABX needs. SW will discuss any additional needs identified by medical team in multidisciplinary rounds. SW to follow-up with pt regarding PCP if needs at discharge are identified in rounds - SW will request MD order to schedule PCP follow-up appointment if necessary. A: Pt who is independent at baseline. No concerns for pt's capacity for self-care indicated at this time. P: Pt likely to discharge home. SW will consult with MD regarding possible IVABX needs at discharge. SW will continue to follow for needs, await MD orders. MANSI Dominguez
--- NOTE | 2017-04-18 08:49 | NUR ---
To OR Via bed at 08:40. Signed consent in chart. Report given by LORETA LE to [place]. Family with pt.
--- NOTE | 2017-04-18 09:14 | PCM.PNMED ---
Subjective Date of Service Apr 18, 2017 Subjective No new complaints or events. Going for VATs today. Exam Vital Signs Vital Sign - Last Date Time Temp Pulse Resp B/P Pulse Ox O2 Delivery O2 Flow Rate FiO2 04/18/17 04:45 37.2 98 18 136/73 95 Room Air 04/17/17 12:02 3.00 Intake and Output 04/17/17 04/17/17 04/18/17 Cumulative From/Thru 15:00 23:00 07:00 04/16/17 16:48 - 04/18/17 06:22 Intake Total 981 ml 468 ml 830 ml 2279 ml Output Total 700 ml 600 ml 2400 ml Balance 981 ml -232 ml 230 ml -121 ml Intake Oral 100 ml 686 ml 786 ml IV Total 981 ml 368 ml 144 ml 1493 ml Output Urine Total 700 ml 600 ml 2400 ml # Bowel Movements 0 0 Exam General: Pleasant appearing female in no acute distress; somewhat cachectic appearing HEENT: PERRLA, EOMI, nonicteric, membranes moist Lymph: No lymphadenopathy Cardio: Regular rate and rhythm no murmurs rubs or gallops Respiratory: CTA bilaterally, no wheezes, no crackles; decreased breath sounds especially in the right lower lobe; increase consolidation on on percussion in right lower lobe Abdomen: Soft, positive bowel sounds, nontender, nondistended Extremities: No edema, sensation intact, pulses intact Psych: Appropriate mood and affect Neuro: CN II through XII grossly intact, sensation intact throughout Skin: No rash IVs and Medications Medications Reviewed: Medications were reviewed in detail Lab and Diagnostics Result Diagram: 04/18/17 0520 04/18/17 0520 X-Rays, CTs and MRIs CXR 04/11/17 1. Opacification involving much of the right lower lobe. This may be atelectasis plus or minus pleural effusion. An underlying infection is not excluded. Atelectasis may be secondary to mucus plugging from bronchitis or central obstructing mass lesion. Further evaluation with contrast-enhanced chest CT is recommended. 2. Questionable prominence of the superior mediastinal structures suggestive of adenopathy, also further evaluate by cross-sectional imaging. 3. Mild hyperinflation consistent with mild emphysema. 4. Discussed with Parisa Beltre in the urgent care clinic. Dictated by: Debo Wilson MD on 04/11/2017 at 16:05 PROCEDURE: CT CHEST WITHOUT CONTRAST ([id number]) INDICATIONS: pleural effusion IMPRESSION: 1. Pleural effusion which is slightly decreased when compared with the study dated 04/12/17. As before, there have a loculated appearance. 2. Unchanged dependent right basilar consolidation or atelectasis. 3. New atelectasis or consolidation at the dependent left lung base. 4. Pulmonary scar versus subcentimeter spiculated mass at the left apex. [address] recommended to ensure stability of this finding. Dictated by: Peggy Hansen M.D. on 04/16/2017 at 22:01 Assessment & Plan 62-year-old female with limited past medical history presents to emergency department at [facility] due to chest pain and was found to have recurrent right- sided pleural effusion concerning for empyema with unknown etiology. #Loculated pleural effusion with leukocytosis; present on admission; ongoing -parapneumonic vs malignant -Patient transferred from [facility] due to recurrent pleural effusion on the right for possible VATS.will send for micro and cytology Previously drained 400ml, re-accumulated and loculated on thoracentesis -Unknown etiology at this point although effusion had a glucose of 2 which may be concerning for bacterial empyema -Pleural fluid: GS and culture was negative; AFB negative -Called [facility] and no cytology report available; discharge summary stated that there was a cytology ordered but unable to find results -Bcx negative at [facility] -Previously on Zosyn; will continue -MRSA screen -Discussed the case with pulmonology , -consulted surgery Dr. Walker,patient scheduled for VATs -Repeat bcx x2 negative -Repeat CT loculated effusion as above #Persistent mild Hyponatremia; present on admission; ongoing -Previously treated with fluid restriction, thinking that it was 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 to SIADH -1 L fluid restriction daily #Iron deficiency anemia; present on admission; ongoing -As reported in HPI, patient severely iron deficient with saturation of 8% -Daily iron replacement -Consider screening for celiacs #Nicotine dependence; present on admission; ongoing -Nicotine patch -Smoking cessation discussed Disposition: Patient is being admitted to inpatient status with expected length of stay greater than two midnights due to to severity of presentation, duration of treatment, and risks of adverse events disposition DNR/DNI Disposition: Pending clinical course VTE Mechanical Devices: Intermittant Pneumatic CD Resuscitation Status: DNR/DNI:Do Not Resuscitate/Intubate Abdulkadir Rausch MD Apr 18, 2017 09:14 Resuscitation Status: DNR/DNI:Do Not Resuscitate/Intubate Abdulkadir Rausch MD Apr 18, 2017 09:14
[2017-04-18] MEDS ORDERED: Bupivacaine 0.5%/EPI 50 mL Inj INFILTRATE ONE (10:19)
--- NOTE | 2017-04-18 10:47 | PROG NOTE ---
[address] [address] PROGRESS NOTE PATIENT: LESLIE BELL : 1955 MR#: [id number] ADMIT: 04/16/2017 JOB ID: [id number] DATE: 04/18/2017 SUBJECTIVE: The patient is seen in followup. She had no acute events overnight. She has no chest pain. She has minimal shortness of breath at rest. OBJECTIVE: Temperature 37.2, pulse 98, blood pressure 136/73, saturation 95% on room air. General: She is sitting up in bed, in no acute distress. Chest: She has diminished breath sounds on the right, but no wheezes. Heart regular rate and rhythm, no murmurs. Extremities no edema. LABS: CBC is pending. Creatinine 0.60. Glucose 88. Procalcitonin 0.09. Albumin 2.5. ASSESSMENT AND PLAN: A 62-year-old woman with a right chest exudative effusion. Which is loculated. Plan is to proceed today with a right video-assisted thorascopic surgery with decortication. Plan will be to send fluid for cell counts, bacterial culture, acid-fast bacilli, and potentially send some pleural tissue for pathology. Informed consent was obtained.
[2017-04-18 11:38] LABS: TOTAL PROTEIN,PLEURAL FLUID 5.1 g/dL
--- NOTE | 2017-04-18 11:47 | ABG ---
DateTimeAnalyzed 11:40:00 -_ pH ____7.200 - 7.350 7.450 pCO2 ___36.4__ -mmHg 35.0 45.0 pO2 250 -mmHg 69.0 116 HCO3- ___13.7__ -mmol/L 22.0 26.0 ABE __-12.8__ -mmol/L -2.0 2.0 tHb ____4.5__ -g/dL O2Hb ___97.5__ -% COHb ____0.3__ -% MetHb ____1.3__ -% sO2 ___99.1__ -% FIO2 __100.0__ -% Drawn By jmw - Date/Time Notified____ 11:46:00 -_ Oxygen Device 1 INTABATED - Notified By jmw - Notified Whom ____OR DR - B 756 -mmHg tO2 ____6.8__ -Vol% Avery test N/A -
[2017-04-18 11:49] LABS: Magnesium 1.4 mg/dL (1.6-2.6)
[2017-04-18 12:03] LABS: Mean Corpuscular Hemoglobin 30.4 pg (27.0-35.0); Mean Corpuscular Volume 88.6 fL (81-100)
--- NOTE | 2017-04-18 12:03 | DRSVH ---
PROCEDURE: X-RAY CHEST ONE VIEW, PORTABLE ([id number]) INDICATIONS: CODE BLUE LINE PLACEMENT TECHNIQUE: One view of the chest was acquired. COMPARISON: [facility], CT, CT CHEST WO CON, 04/16/2017, 21:43. Outside Film, US, US LENI DED THORACENTESIS, 04/15/2017, 13:57. Outside Film, CR, XR CHEST 2VW, 04/14/2017, 14:53. FINDINGS: 2 chest tubes are in the right chest one anteriorly and one along the lateral chest wall extending morales periorly. There is no pneumothorax seen. There is a decrease in density in the right lower lung field consistent with drainage of some pleural-based fluid. The left lung is clear. Pulmonary vasculature is normal. The endotracheal tube is 4.9 cm above the paxton. There is a left subclavian central line with the tip at the junction of the superior vena cava and right atrium. IMPRESSION: 1. Central line placement appropriate position an endotracheal tube 4.9 cm above the paxton in the mi dline. 2. 2 chest tubes in the right chest since previous outside film for drainage of loculated pleural flu id postero-inferiorly in the right chest. Dictated by: Washington Tamez M.D. on 04/18/2017 at 11:58 Approved by: Washington Tamez M.D. on 04/18/2017 at 12:01
[2017-04-18 12:11] LABS: INR 1.43 ratio
[2017-04-18 12:31] LABS: Creatine Kinase 56 U/L (21-215)
[2017-04-18] MEDS ORDERED: Vasopressin 20 Unit/mL Inj ONE (13:11)
[2017-04-18] MEDS ORDERED: HYDROmorphone 1 mg/mL Inj ONE (13:11)
[2017-04-18] MEDS ORDERED: Phenylephrine/NS 100 mCg/mL 10 mL Syringe IVPUSH ONE (13:11)
[2017-04-18] MEDS ORDERED: Phenylephrine 10,000 mCg/mL Inj ONE (13:11)
[2017-04-18] MEDS ORDERED: Propofol 10,000 mCg/mL 20 mL Inj ONE (13:11)
[2017-04-18] MEDS ORDERED: fentaNYL-PF 50 mCg/mL 2 mL Inj ONE (13:11)
[2017-04-18] MEDS ORDERED: Rocuronium 10 mg/mL 5 mL Inj ONE (13:11)
[2017-04-18] MEDS ORDERED: Succinylcholine Chloride 20 mg/mL 5 mL Inj ONE (13:11)
--- NOTE | 2017-04-18 13:12 | PCM.SURGOP ---
Surgical Operative Report Date of Service: Apr 18, 2017 Pre Operative Diagnosis Loculated right pleural exudative effusion Post Operative Diagnosis Same, Procedure: Right VATS decortication, pleural biopsies Surgeon and Chief Vendor Quality: Surgeon: Adrián Walker MD Assistants: Helder Rm PA-C Indication for Procedure 62-year-old woman who was transferred to [facility] from [facility] for consideration of a right VATS. She had developed approximately a week and a half of progressive shortness of breath. She had a thoracentesis at [facility], which was consistent with an exudative effusion. She was a chronic smoker, and had a past history of aortobifemoral bypass graft, as well as coarctation of the aorta. After discussion of risks and benefits, she agreed to proceed with right VATS with decortication. Findings: There was a loculated effusion containing mostly bloody fluid, with some abnormal pleural tissue along the diaphragmatic surface. Toward the end of the operation, she became hemodynamically unstable with hypotension and tachycardia , with poor pulse oximetry. The operation was concluded. She ultimately developed a PEA arrest in the operating room, undergoing several rounds of CPR. She briefly regained a perfusing rhythm, but again lost pulses. Procedure Details She was brought to the operating room where she underwent smooth induction of general anesthesia with a double-lumen endotracheal tube. A Lubin catheter was placed. A left radial arterial catheter was placed. She was placed in the right semi-decubitus position, and was prepped and draped in wide sterile fashion. A procedural pause was performed according to the SCOAP checklist, and all were found to be in agreement. Single lung ventilation was employed. A transverse incision was made at the level of the inframammary crease at the anterior axillary line on the right. The right pleural space was entered safely. There were no significant adhesions. A 30 camera was inserted, and inspection revealed safe entry into the right pleural space. The upper and middle lobes looked normal, but the right lower lobe was adherent to the parietal pleura and the diaphragm. An additional port site was placed in the posterior axillary line under visualization. Working through both ports, adhesions were taken down bluntly off the parietal pleural surface. There was a bloody effusion once the loculated space was entered. Fluid was aspirated into a Luken tube and sent for cell studies, LDH, protein, glucose, culture. Gelatinous material was then debrided off the diaphragmatic surface of the right lower lobe, and sent for permanent pathology. Toward the end of the dissection, she became hemodynamically unstable, with increased tachycardia and hypotension, as well as low oxygen saturation. Chest tubes were quickly placed. A 28 Serbian curved chest tube was placed through the posterior port site, and a 28 Serbian straight chest tube was placed through the anterior port site, and both were secured to the skin with 2-0 nylon suture. She was rolled back onto her back, and briefly stabilized. She then developed progressive PEA arrest, and CPR was started. After several rounds of medications including vasopressin and epinephrine, a spontaneous perfusing rhythm was regained. Initial chest tube output was minimal. She remained unstable, requiring intermittent doses of vasopressors. A chest x-ray showed no pneumothorax, no significant pleural effusion, a normal cardiac border. She then developed recurrent PEA arrest, and CPR was resumed. A left subclavian central venous catheter was placed using the Seldinger technique over an 18-gauge needle. The catheter was inserted to 18 cm, and a sterile dressing was applied. All 3 ports aspirated and flushed well. Several ongoing rounds of CPR ensued. Chest tube output during the second course of CPR was over 1 L of bloody fluid. 2 units of packed red blood cells were transfused. At this point, discussions were had with the daughter because of her DNR/DNI status, which had been revoked for the operation itself. She expressed the opinion that prolonged CPR was not warranted, so CPR was discontinued. Time of was called in the operating room. Complications the operating room. Surgical Specimen Removed: Yes Specimen sent to Pathology: Yes Surgical Specimen description: Right pleural tissue. Anesthetic Plan: GA Grafts, Implants: None Output, Estimated Blood Loss: 100 Blood Administration during morales: Yes-See Blood Administration Record Catheters: Urethral 2 Way Adrián Enciso MD Apr 18, 2017 13:12
[2017-04-18] MEDS ORDERED: EPINEPHrine 0.1 mg/mL 10 mL Syringe ONE (13:34)
--- NOTE | 2017-04-18 15:07 | ABG ---
DateTimeAnalyzed 11:07:00 -_ pH ____7.345 - 7.350 7.450 pCO2 ___35.7__ -mmHg 35.0 45.0 pO2 250 -mmHg 69.0 116 HCO3- ___18.9__ -mmol/L 22.0 26.0 ABE ___-5.7__ -mmol/L -2.0 2.0 tHb ____7.4__ -g/dL O2Hb ___97.9__ -% COHb ____0.6__ -% MetHb ____0.6__ -% sO2 ___99.1__ -% FIO2 __100.0__ -% Drawn By jmw - Date/Time Notified____ 11:13:00 -_ Notified By jmw - Notified Whom __DR LUIZ - B 757 -mmHg tO2 ___10.9__ -Vol% Avery test N/A -
--- NOTE | 2017-04-18 15:09 | ABG ---
DateTimeAnalyzed 11:07:00 -_ pH ____7.345 - 7.350 7.450 pCO2 ___35.7__ -mmHg 35.0 45.0 pO2 250 -mmHg 69.0 116 HCO3- ___18.9__ -mmol/L 22.0 26.0 ABE ___-5.7__ -mmol/L tHb ____7.4__ -g/dL O2Hb ___97.9__ -% COHb ____0.6__ -% MetHb ____0.6__ -% sO2 ___99.1__ -% FIO2 __100.0__ -% Drawn By jmw - Date/Time Notified____ 11:13:00 -_ Notified By jmw - Notified Whom __DR LUIZ - B 757 -mmHg tO2 ___10.9__ -Vol% Avery test N/A -
--- NOTE | 2017-04-18 16:30 | NUR ---
Nursing Sausage Cutter: Patient sent to [facility] at 1430. Donor Referral Service notified of patient , they will contact family for possible donation per Shreya, #[phone]. [facility] notified of [facility] at 1630, they will not take jurisdiction, [facility]# [id number].
--- NOTE | 2017-04-18 17:32 | PCM.DC.MEX ---
Discharge Summary Date of Service Apr 18, 2017 Dates of Hospitalization Date of Hospital Admission Apr 16, 2017 at 16:40 Date of Expiration: Apr 18, 2017 Time of Expiration: 12:12 Providers: Admitting Physician: Mag Arias MD Primary Care Physician: Celeste Attending Physician: Abdulkadir Rausch MD Diagnosis at Time of # Intraoperative PEA arrest due to possible pulmonary embolism # suspected lung cancer # loculated pleural effusion Additional Diagnosis #Persistent mild Hyponatremia; present on admission; #Iron deficiency anemia; present on admission; Nicotine dependence; present on admission; # history of coarctation of aorta/Aortic-bifemoral artery surgery Consultations pulm Dr Oh surgeon Dr Khan Procedures XRay, CTs & MRIs CXR 04/11/17 1. Opacification involving much of the right lower lobe. This may be atelectasis plus or minus pleural effusion. An underlying infection is not excluded. Atelectasis may be secondary to mucus plugging from bronchitis or central obstructing mass lesion. Further evaluation with contrast-enhanced chest CT is recommended. 2. Questionable prominence of the superior mediastinal structures suggestive of adenopathy, also further evaluate by cross-sectional imaging. 3. Mild hyperinflation consistent with mild emphysema. 4. Discussed with Parisa Beltre in the urgent care clinic. Dictated by: Debo Wilson MD on 04/11/2017 at 16:05 PROCEDURE: CT CHEST WITHOUT CONTRAST ([id number]) INDICATIONS: pleural effusion IMPRESSION: 1. Pleural effusion which is slightly decreased when compared with the study dated 04/12/17. As before, there have a loculated appearance. 2. Unchanged dependent right basilar consolidation or atelectasis. 3. New atelectasis or consolidation at the dependent left lung base. 4. Pulmonary scar versus subcentimeter spiculated mass at the left apex. [address] recommended to ensure stability of this finding. Dictated by: Peggy Hansen M.D. on 04/16/2017 at 22:01 Brief History per HPI 62-year-old female with history of [id number]-svle smoking and coarctation s/p aortic artery replacement presented to [facility] due to 7 days of chest and rib pain and shortness of breath. The patient denied fever, chills, nausea, vomiting, substernal chest pain, radiating chest pain, diaphoresis, dizziness, weight loss, or abdominal pain. The patient underwent evaluation at [facility] chest x-rays demonstrating large right pleural effusion, and a CT angiography of the chest which demonstrated what appears to be a homogenous pleural effusion. At [facility] a thoracentesis was achieved but only 30 mL were obtained, reportedly demonstrating an empyema or loculated pleural effusion. Etiology for the effusion has not been diagnosed and current report of the CT is not in Web ambassador. Plans were made as late as 04/15/[address] a chest tube for drainage. However this was never accomplished and there is no recurrent port as to why a chest tube was not attempted. The patient was instead transferred to [facility] where the above history was reviewed and review of systems was obtained. The reason for the transfer was initially reported for VATS. Dr. Arias of surgery is aware of the patient and asked that pulmonology also be involved. The patient today is doing quite well with only right-sided rib and chest pain that is amenable to Dilaudid 0.5 mg. Blood work from today prior to the patient leaving [facility] is as follows: Sodium 131, potassium 3.4, chloride 96, bicarbonate 25, calcium 8.3, BUN 8, creatinine 0.7, GFR greater than 60, glucose 76. WBC 12.2, H/H 11.1/32.6, platelets 298; differential 83% polys Iron 12, TIBC 150, percent saturation 8 Thoracentesis details obtained by phone call to [facility]: protein 3853.5, LDH 1618, color: clear-yellow, WBC 2380, RBC 27254, seg neut 56, clear cells 44 Hospital Course 62-year-old female with limited past medical history presents to emergency department at [facility] due to chest pain and was found to have recurrent right- sided pleural effusion concerning for empyema with unknown etiology. #Loculated pleural effusion ; present on admission; -parapneumonic vs malignant .initially thought infectious given leukocytosis but now seems to be malignant given bloody effusion and abnormal appearing pleura in operative note -Patient transferred from [facility] due to recurrent pleural effusion on the right for possible VATS Patient went to OR for VATs Patient has no history of coronary disease. Able to walk, take 2 flight of stairs without dyspnea or chest pain METs 4-10 prior to recent onset of dyspnea due to effusion reportedly had normal stress test a year ago ,inpatient telemetry unremarkbale , EKG from 7/31 at [facility] unremarkable except upright TW in lateral leads which was inverted in Dec,patient with very good functional status until recently .no chest pain reported per OR team,Intraoperatively loculated effuison evacuated,chest tube inserted and at the final stage of the procedure patient reportedly became hypotensive, bradycardic and went in to PEA arrest and epi and pressors given ,ROSC ,she went again to PEA in few minutes ,she recieved 2 nd round of chest compressions and epi ,she was finally pronounced in OR DETAILS OF EVENTS AND FINDINGS NOTED IN SURGEON DR KHAN NOTE BELOW Date of Service: Apr 18, 2017 Pre Operative Diagnosis Loculated right pleural exudative effusion Post Operative Diagnosis Same, Procedure: Right VATS decortication, pleural biopsies Surgeon and Driver Courier: Surgeon: Adrián Khan MD Assistants: Helder Rm PA-C Indication for Procedure 62-year-old woman who was transferred to [facility] from [facility] for consideration of a right VATS. She had developed approximately a week and a half of progressive shortness of breath. She had a thoracentesis at [facility], which was consistent with an exudative effusion. She was a chronic smoker, and had a past history of aortobifemoral bypass graft, as well as coarctation of the aorta. After discussion of risks and benefits, she agreed to proceed with right VATS with decortication. Findings: There was a loculated effusion containing mostly bloody fluid, with some abnormal pleural tissue along the diaphragmatic surface. Toward the end of the operation, she became hemodynamically unstable with hypotension and tachycardia , with poor pulse oximetry. The operation was concluded. She ultimately developed a PEA arrest in the operating room, undergoing several rounds of CPR. She briefly regained a perfusing rhythm, but again lost pulses. Procedure Details She was brought to the operating room where she underwent smooth induction of general anesthesia with a double-lumen endotracheal tube. A Lubin catheter was placed. A left radial arterial catheter was placed. She was placed in the right semi-decubitus position, and was prepped and draped in wide sterile fashion. A procedural pause was performed according to the SCOAP checklist, and all were found to be in agreement. Single lung ventilation was employed. A transverse incision was made at the level of the inframammary crease at the anterior axillary line on the right. The right pleural space was entered safely. There were no significant adhesions. A 30 camera was inserted, and inspection revealed safe entry into the right pleural space. The upper and middle lobes looked normal, but the right lower lobe was adherent to the parietal pleura and the diaphragm. An additional port site was placed in the posterior axillary line under visualization. Working through both ports, adhesions were taken down bluntly off the parietal pleural surface. There was a bloody effusion once the loculated space was entered. Fluid was aspirated into a Luken tube and sent for cell studies, LDH, protein, glucose, culture. Gelatinous material was then debrided off the diaphragmatic surface of the right lower lobe, and sent for permanent pathology. Toward the end of the dissection, she became hemodynamically unstable, with increased tachycardia and hypotension, as well as low oxygen saturation. Chest tubes were quickly placed. A 28 Faroese curved chest tube was placed through the posterior port site, and a 28 Faroese straight chest tube was placed through the anterior port site, and both were secured to the skin with 2-0 nylon suture. She was rolled back onto her back, and briefly stabilized. She then developed progressive PEA arrest, and CPR was started. After several rounds of medications including vasopressin and epinephrine, a spontaneous perfusing rhythm was regained. Initial chest tube output was minimal. She remained unstable, requiring intermittent doses of vasopressors. A chest x-ray showed no pneumothorax, no significant pleural effusion, a normal cardiac border. She then developed recurrent PEA arrest, and CPR was resumed. A left subclavian central venous catheter was placed using the Seldinger technique over an 18-gauge needle. The catheter was inserted to 18 cm, and a sterile dressing was applied. All 3 ports aspirated and flushed well. Several ongoing rounds of CPR ensued. Chest tube output during the second course of CPR was over 1 L of bloody fluid. 2 units of packed red blood cells were transfused. At this point, discussions were had with the daughter because of her DNR/DNI status, which had been revoked for the operation itself. She expressed the opinion that prolonged CPR was not warranted, so CPR was discontinued. Time of was called in the operating room. Complications the operating room. Surgical Specimen Removed: Yes Specimen sent to Pathology: Yes Surgical Specimen description: Right pleural tissue. Anesthetic Plan: GA Grafts, Implants: None Output, Estimated Blood Loss: 100 Blood Administration during morales: Yes-See Blood Administration Record Catheters: Urethral [address] Way Adrián Enciso MD Apr 18, 2017 13:12 <Electronically signed by Adrián Khan MD> 04/18/17 1314 # Intraoperative PEA cardiac arrest cause of unclear at this time. difficult to establish cause of as there is no autopsy and i was not present during procedure or code but spoke with OR including surgeon after code probable cause massive PE given PEA arrest and risk factors suspected malignancy ( given hemorrhagic effusion ,abnormal pleura ,smoking history ) , surgery other possible causes adverse effects of anaesthesia meds ,aortic dissection or rupture given history of repaired coarctation of aorta massive pneumothorax unlikely given cxr did not show penumothorax postop coronary ischemic event possible but unlikely as arrest is PEA not Vib or Vtac .no known CAD and patient with very good functional status METs 4-10 prior to surgery .had also normal stress test 1 year ago .other possibilities hemorragic cardiac tamponade but unlikely given not seen on CXR .other possiblities hemorrhagic shock from bleeding tumor.3 gm Hb drop noted and bloody chest tube output reported on operative note but 2 PRBCs replaced and chest tube output amount not reported as massive bleed postmortem recommended and offered by surgeon to daughter who is a nurse but reportedly declined # suspected lung cancer cytology sent , -pleural fluid hemorrhagic,smoking history and abnormal appearing pleura in operative note #Persistent mild Hyponatremia; present on admission; -Previously treated with fluid restriction, thinking that it was 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 to SIADH -was improving #Iron deficiency anemia; present on admission; -As reported in HPI, patient severely iron deficient with saturation of 8% -Daily iron replacement was stared #Nicotine dependence; present on admission; -Nicotine patch -Smoking cessation was discussed # history of coarctation of aorta/Aortic-bifemoral artery surgery at [facility] 2014 patient was DNR/DNI,rescind for OR,eventually daughter reportedly asked CPR to be stopped after the second code blue called on her and patient in OR at 12:12 on 04/18/17 Exam Test 04/16/17 21:50 04/17/17 05:00 04/17/17 07:25 04/17/17 12:48 Hold Purple Top Tube Received (Received) Hold Blue Top Tube Received (Received) Hold Red Top Tube Received (Received) Hold [place] Top Tube Received (Received) Hold Jean Top Tube Received (Received) Urine Random Sodium 133mEq/L Osmolality 269 (275-300) Erythrocyte Sedimentation Rate 63mm/hr (0-40) Test 04/18/17 05:20 04/18/17 10:59 04/18/17 11:20 04/18/17 11:40 Neutrophils (%) (Auto) 75.2% (40-74) Lymphocytes (%) (Auto) 8.4% (14-46) Monocytes (%) (Auto) 14.9% (4-12) Eosinophils (%) (Auto) 0.8% (0-5) Basophils (%) (Auto) 0.2% (0-3) Procalcitonin 0.09ng/mL (0.00-0.08) Body Fluid Lactate Dehydrogenase 2808U/L Pleural Fluid Total Protein 5.1g/dL Pleural Fluid Glucose 47mg/dL White Blood Count 11.3th/mm3 (3.8-10.1) Red Blood Count 2.37mil/mm3 (3.90-5.20) Hemoglobin 7.2g/dL (12.0-15.6) Hematocrit 21.0% (35.0-46.0) Mean Corpuscular Volume 88.6fL (81-100) Mean Corpuscular Hemoglobin 30.4pg (27.0-35.0) Mean Corpuscular Hemoglobin Concent 34.3% (32.0-37.0) Red Cell Distribution Width 12.1% (12.3-15.4) Platelet Count 292bil/L (150-400) Magnesium Level 1.4mg/dL (1.6-2.6) Sodium Level 131mEq/L (134-144) Potassium Level 4.4mEq/L (3.5-5.2) Chloride Level 101mEq/L (97-108) Carbon Dioxide Level 12mmol/L (18-29) Blood Urea Nitrogen 6mg/dL (8-27) Creatinine 0.53mg/dL (0.57-1.00) Estimat Glomerular Filtration Rate 167mL/min (>59) Glucose Level 221mg/dL (60-99) Calcium Level 6.5mg/dL (8.5-10.1) Total Bilirubin 0.2mg/dL (0.0-1.2) Aspartate Amino Transf (AST/SGOT) 20U/L (0-50) Alanine Aminotransferase (ALT/SGPT) 5U/L (0-32) Alkaline Phosphatase 41U/L (25-165) Total Protein 2.6g/dL (6.4-8.4) Albumin 1.1g/dL (3.4-5.0) Test 04/18/17 11:43 Prothrombin Time 15.4sec (8.1-12.5) Prothromb Time International Ratio 1.43ratio Activated Partial Thromboplast Time 113.6sec (22.8-33.0) Lactic Acid Level 9.0mmol/L (0.4-2.0) Total Creatine Kinase 56U/L (21-215) Creatine Kinase MB 1.0ng/mL (0.0-5.3) Creatine Kinase MB % % (0.0-5.0) Troponin T 0.010ug/L (0.0-0.011) Abdulkadir Rausch MD Apr 18, 2017 17:32
--- NOTE | 2017-04-22 13:23 | PATH ---
SURGICAL PATHOLOGY Attending Physician:Fareed Barrow CASE STATUS: Signed Out PATIENT NAME: LESLIE BELL PID: [id number] : 1955 DATE COLLECTED:04/18/2017 00:00 SPECIMEN: Pleural Fluid CLINICAL HISTORY: Pleural Fluid ICD-10 code not given FINAL DIAGNOSIS: PLEURAL FLUID, CYTOLOGY: NEGATIVE FOR MALIGNANT CELLS. [id number] GROSS DESCRIPTION: Received fresh on 04/20/2017 is approximately 10 cc of cloudy hemorrhagic fluid. Prepared are one cell block and one Cytospin slide. Vo MICRO DESCRIPTION: There are a few focal fibrinoid aggregates with entrapped inflammatory cells. Immunohistochemical stains were performed to characterize the cells of interest. Control stains showed appropriate reactivity. Results: WT-1: Negative CK 5/6: Negative MOC-31: Negative BerEP4: Negative Calretinin: Negative Interpretation: The absence of staining for mesothelial or epithelial markers is consistent with the morphologic impression of inflammatory cells. Additional immunohistochemical markers can be performed upon request, if clinically indicated. *This test was developed and its performance characteristics determined by [facility]. It has not been cleared or approved by the U. S. Food and Drug Administration. The FDA has determined that such clearance or approval is not necessary. This test is used for clinical purposes. It should not be regarded as investigational or for research. ICD-9 CODES: CPT CODES: 1: 11730, 81090, 30121, 25269, 60397, 83882, 92932, 53383 Electronically Signed Out Donna Rosas MD [facility] Pathology [facility] [address], [place] [address] Technical component performed at [facility], [address], [place], [address]
--- NOTE | 2017-04-23 15:17 | PATH ---
SURGICAL PATHOLOGY Attending Physician:Fareed Barrow CASE STATUS: Signed Out PATIENT NAME: LESLIE BELL PID: [id number] : 1955 DATE COLLECTED:04/18/2017 00:00 SPECIMEN: Pleura, Biopsy CLINICAL HISTORY: RIGHT LUNG EMPYEMA 1). RIGHT PLEURAL TISSUE FINAL DIAGNOSIS: RIGHT LUNG, PLEURAL TISSUE: 1. EMPYEMA. 2. Additional findings pending consultation at the [facility]. ICD10 J86.9 NOTE: Because of the interesting histologic appearance, this case will be sent to the [facility] for a second opinion. GROSS DESCRIPTION: The specimen is received in formalin, labeled with the patient's name, sublabeled as Rt. pleural tissue, and consists of multiple fragments of barrios-lora glistening rubbery semi-translucent mixed apparent blood clots (6.5 x 4.5 x 1.3 cm in aggregate). Section code: (A, B) tissue, commercial representative. 04/20/17 JOSY Additional Sections: (C-F) remaining tissue. Specimen entirely submitted. 04/22/17 JOSY MICRO DESCRIPTION: See diagnosis. ICD-9 CODES: CPT CODES: 1: 33285 Electronically Signed Out Donna Rosas MD [facility] Pathology [facility] [address], [place] [address] Technical component performed at [facility], [facility] [address], [place], [address]
== END 2017-04-18 13:12 | disposition expired | DRG 164 ==
LOC: OSC 16:40 → CCU 04-18 10:58 → PCC 04-18 12:53
PROVIDERS: ADMIT Student in an Organized Health Care Education/Training Program; ATTEND Hospitalist
PROC: 0BBN4ZX Excision of Right Pleura, Percutaneous Endoscopic Approach, Diagnostic (ICD-10-PCS; 2017-04-18)
PROC: 30233N1 Transfusion of Nonautologous Red Blood Cells into Peripheral Vein, Percutaneous Approach (ICD-10-PCS; 2017-04-18)
PROC: 4A033R1 Measurement of Arterial Saturation, Peripheral, Percutaneous Approach (ICD-10-PCS; 2017-04-18)
PROC: 5A12012 Performance of Cardiac Output, Single, Manual (ICD-10-PCS; 2017-04-18)
PROC: 0BDN4ZZ Extraction of Right Pleura, Percutaneous Endoscopic Approach (ICD-10-PCS; principal; 2017-04-18 08:00)
DX: J90 Pleural effusion, not elsewhere classified (principal); E87.1 Hypo-osmolality and hyponatremia; I97.711 Intraoperative cardiac arrest during other surgery; C34.90 Malignant neoplasm of unspecified part of unspecified bronchus or lung; J43.9 Emphysema, unspecified; D50.9 Iron deficiency anemia, unspecified; F17.210 Nicotine dependence, cigarettes, uncomplicated; Z66 Do not resuscitate